=== PATIENT | female | born 1960 | race Caucasian/White ===

== ENCOUNTER 2024-07-21 16:57 | Emergency (ER) | payer OTHER, SELFPAY ==
[2024-07-21] VITALS (16 sets, daily range): BP systolic 128–206; BP diastolic 63–84; PULSE 78–89; RESP 15–31; TEMP 36.7; O2SAT 92–99; BMI 46.4
--- NOTE | 2024-07-21 17:18 | DI.RAD.S_ITS ---
PROCEDURE: XR CHEST 1V INDICATIONS: Chest Pain TECHNIQUE: One view of the chest was acquired. COMPARISON: None. FINDINGS: Lordotic patient position. Surgical changes and devices: None. Lungs and pleura: Lungs are clear. No pleural effusions or pneumothorax. Mediastinum: Mediastinal contours appear normal. Heart size is normal. Bones and chest wall: No suspicious bony lesions. Overlying soft tissues appear unremarkable. IMPRESSION: No acute cardiopulmonary abnormality is seen. Dictated by: Mago Alcala M.D. on 07/21/2024 at 17:41 Approved by: Mago Alcala M.D. on 07/21/2024 at 17:41
--- NOTE | 2024-07-21 17:22 | EKG_ITS ---
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
[2024-07-21 17:36] LABS: Add Manual Diff / Slide Review NO; Basophils Absolute Auto 100 /uL (0-100); Basophils Percent Auto 1.1 % (0-2); Eosinophils Absolute Auto 100 /uL (0-450); Eosinophils Percent Auto 2.1 % (2-4); Hematocrit 40.8 % (36-46); Hemoglobin 13.8 g/dL (12.0-16.0); Lymphocytes Absolute Auto 1500 /uL (1100-4500); Lymphocytes Percent Auto 29.5 % (25-40); Mean Corpuscular HGB Conc 33.9 % (30-36); Mean Corpuscular Hemoglobin 28.9 PG (26-34); Mean Corpuscular Volume 85.3 fL (80-100); Monocytes Absolute Auto 400 /uL (0-900); Monocytes Percent Auto 8.1 % (3-14); Neutrophils Absolute Auto 3100 /uL (1500-7000); Neutrophils Percent Auto 59.2 % (50-75); Platelet Count 204 X10^3/uL (150-400); Red Blood Cell Count 4.78 X10^6/uL (4.0-5.2); Red Cell Distribution Width 13.9 % (11.6-14.8); White Blood Cell Count 5.2 X10^3/uL (4.5-11.0)
[2024-07-21 17:40] LABS: Prothrombin Time 11.3 SECONDS (9.4-12.5)
[2024-07-21 17:42] LABS: PTT Partial Thromboplastin Tim 34 SECONDS (25.1-36.5)
[2024-07-21 17:45] LABS: Alanine Aminotransferase 76 IU/L (<35); Albumin 3.8 g/dL (3.5-5.0); Albumin Globulin Ratio 1.4 (1.0-2.8); Alkaline Phosphatase 87 U/L (38-126); Aspartate Aminotransferase 108 IU/L (14-36); BUN Creatinine Ratio 19.7 (6-22); Bilirubin Total 0.5 mg/dL (0.2-1.3); Blood Urea Nitrogen 13 mg/dL (7-17); Calcium 8.8 mg/dL (8.4-10.2); Carbon Dioxide 27 mmol/L (22-32); Chloride 103 mmol/L (98-107); Creatine Kinase 53 U/L (30-135); Estimated Glomerular Filt Rate > 60 mL/min (>60); Globulin 2.8 g/dL (1.7-4.1); Glucose 288 mg/dL (70-99); HEMOLYSIS 15 (0-50); Lactate (Lactic Acid) 2.9 mmol/L (0.7-2.1); Lipase 117 U/L (23-300); Magnesium 1.9 mg/dL (1.6-2.3); Potassium 4.4 mmol/L (3.4-5.1); Sodium 137 mmol/L (137-145); Total Protein 6.6 g/dL (6.3-8.2)
[2024-07-21 17:56] LABS: NT-proBNP (BNP-Adult 18+) 69 pg/mL (<125); Troponin I < 0.012 ng/mL (0.01-0.034)
--- NOTE | 2024-07-21 18:34 | ED_ITS ---
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 Santana. The surgery went well. She has had one-week or so of intermittent left anterior chest discomfort. The episodes are getting more frequent. They seemed to be happening at rest, not necessarily with any activity. Nonradiating. No associated nausea or vomiting, no associated diaphoresis. She has difficulty swallowing larger pills, has continued to take her blood pressure medications, and not taking her metformin. Related Data Allergies Allergy/AdvReac Type Severity Reaction Status Date / Time adhesive tape Allergy Verified 07/21/24 17:13 cephalexin [From Keflex] Allergy Verified 07/21/24 17:13 Patient History Social History Smoking Status: Never smoker Smoking Status: Never smoker Exam Narrative Exam Narrative: GENERAL: Well-developed patient, in mild distress. HEAD: Atraumatic. Normocephalic. EYES: Pupils equal round and reactive. Extraocular motions intact. No scleral icterus. No injection or drainage. ENT: Nose without bleeding, purulent drainage. Throat without erythema, tonsillar hypertrophy or exudate. Airway patent. NECK: Trachea midline. Non tender CARDIOVASCULAR: Regular rate and rhythm, soft 1-2/6 systolic murmur best heard LUSB, gallops, or rubs. RESPIRATORY: Clear to auscultation. Breath sounds equal bilaterally. No wheezes, rales, or rhonchi. GASTROINTESTINAL: Abdomen soft, non-tender, nondistended. EXTREMITIES: No edema or joint tenderness. BACK: Nontender without deformity or crepitance. No flank tenderness. NEURO: AOx3. Motor functions grossly nonfocal SKIN: No rash or erythema of visible areas Initial Vital Signs Initial Vital Signs: Vital Signs Temperature 98.1 F 07/21/24 17:13 Pulse Rate 81 07/21/24 17:13 Respiratory Rate 18 07/21/24 17:13 Blood Pressure 128/67 07/21/24 17:13 Pulse Oximetry 96 07/21/24 17:13 Oxygen Delivery Method Room Air 05/11/25 17:13 Course Orders Ordered: ED Orders 07/21/24 17:18 XR chest 1V Stat EKG-12 Lead Stat RT Consult Eval and Treat NOW 07/21/24 17:20 Complete Blood Count AUTO DIFF Stat Comprehensive Metabolic Panel Stat Lactate (Lactic Acid) Stat Lipase Stat Magnesium Stat NT-proBNP (BNP-Adult 18+) Stat PTT Partial Thromboplastin Peter Stat Prothrombin Time INR Stat Troponin & CK Cardiac Panel Stat 07/21/24 21:40 Troponin I Stat Discontinued Medications Aspirin (Aspirin 81 Mg Chew Tab) 324 mg PO NOW ONE Stop: 07/21/24 17:19 Last Admin: 07/21/24 19:05 Dose: Not Given Documented By: CANDELARIA Insulin Human Regular (Insulin Regular 100 Unit/Ml 3 Ml Vial) 5 unit SUBCUT NOW ONE Stop: 07/21/24 19:33 Last Admin: 07/21/24 19:42 Dose: 5 unit Documented By: BHUPINDER Co-signed By: SHARON Vital Signs Vital signs: Vital Signs - 8 hr 07/21/24 17:13 07/21/24 17:56 07/21/24 17:58 Temperature 98.1 F Pulse Rate 81 84 Respiratory Rate 18 Blood Pressure 128/67 176/69 H Pulse Oximetry 96 99 Oxygen Delivery Method Room Air 07/21/24 17:58 07/21/24 18:00 07/21/24 18:01 Temperature Pulse Rate 81 82 89 Respiratory Rate 15 16 21 Blood Pressure Pulse Oximetry 98 97 95 Oxygen Delivery Method 07/21/24 18:01 07/21/24 18:30 07/21/24 18:31 Temperature Pulse Rate 83 Respiratory Rate 26 H Blood Pressure 147/63 H 206/84 H Pulse Oximetry 98 Oxygen Delivery Method 07/21/24 18:31 07/21/24 19:00 07/21/24 19:01 Temperature Pulse Rate 82 85 Respiratory Rate 27 H 21 Blood Pressure 179/67 H Pulse Oximetry 98 97 Oxygen Delivery Method 07/21/24 19:01 07/21/24 19:30 07/21/24 20:00 Temperature Pulse Rate 83 82 Respiratory Rate 31 H 24 Blood Pressure 170/79 H 169/77 H Pulse Oximetry 98 92 Oxygen Delivery Method Room Air 07/21/24 20:00 07/21/24 20:30 07/21/24 20:30 Temperature Pulse Rate 82 87 Respiratory Rate 21 22 Blood Pressure 144/66 H Pulse Oximetry 93 94 Oxygen Delivery Method 07/21/24 21:00 07/21/24 21:30 07/21/24 21:30 Temperature Pulse Rate 87 Respiratory Rate 25 H Blood Pressure 145/70 H 145/67 H Pulse Oximetry 93 Oxygen Delivery Method 07/21/24 22:00 07/21/24 22:00 07/21/24 22:30 Temperature Pulse Rate 78 80 Respiratory Rate 18 26 H Blood Pressure 132/75 Pulse Oximetry 92 92 Oxygen Delivery Method 07/21/24 22:30 Temperature Pulse Rate Respiratory Rate Blood Pressure 135/66 Pulse Oximetry Oxygen Delivery Method MDM - Chest Pain Lab Data Attestation: I reviewed the patient's lab results. Lab results narrative: White blood cell count 5200, hemoglobin 13.8, platelets adequate. Glucose 288. Serum CO2 and anion gap normal. Sodium 137, potassium 4.4. BUN 13 with creatinine 0.66 normal renal function. AST greater than ALT mild elevation, normal total bilirubin and alkaline phosphatase. Lipase 117 normal. Troponin negative/unmeasurable. CPK normal. 07/21/24 17:20 07/21/24 17:20 Labs: Lab Results 07/21/24 07/21/24 07/21/24 Range/Units 17:20 19:24 21:40 WBC 5.2 (4.5-11.0) X10^3/uL RBC 4.78 (4.0-5.2) X10^6/uL Hgb 13.8 (12.0-16.0) g/dL Hct 40.8 (36-46) % MCV 85.3 (80-100) fL MCH 28.9 (26-34) PG MCHC 33.9 (30-36) % RDW 13.9 (11.6-14.8) % Plt Count 204 (150-400) X10^3/uL Neut % (Auto) 59.2 (50-75) % Lymph % (Auto) 29.5 (25-40) % [place] % (Auto) 8.1 (3-14) % Eos % (Auto) 2.1 (2-4) % Baso % (Auto) 1.1 (0-2) % Neut # (Auto) 3100 (9801-7435) /uL Lymph # (Auto) 1500 (9927-4308) /uL [place] # (Auto) 400 (0-900) /uL Eos # (Auto) 100 (0-450) /uL Baso # (Auto) 100 (0-100) /uL PT 11.3 (9.4-12.5) SECONDS INR 1.0 (0.9-1.3) APTT 34 (25.1-36.5) SECONDS Sodium 137 (137-145) mmol/L Potassium 4.4 (3.4-5.1) mmol/L Chloride 103 (98-107) mmol/L Carbon Dioxide 27 (22-32) mmol/L BUN 13 (7-17) mg/dL Creatinine 0.66 (0.52-1.04) mg/dL Estimated GFR > 60 (>60) mL/min BUN/Creatinine Ratio 19.7 (6-22) Glucose 288 H (70-99) mg/dL Lactate 2.9 H 1.9 (0.7-2.1) mmol/L Calcium 8.8 (8.4-10.2) mg/dL Magnesium 1.9 (1.6-2.3) mg/dL Total Bilirubin 0.5 (0.2-1.3) mg/dL AST 108 H (14-36) IU/L ALT 76 H (<35) IU/L Alkaline Phosphatase 87 (38-126) U/L Total Creatine Kinase 53 (30-135) U/L Troponin I < 0.012 0.014 (0.01-0.034) ng/mL NT-Pro-B Natriuret Pep 69 (<125) pg/mL Total Protein 6.6 (6.3-8.2) g/dL Albumin 3.8 (3.5-5.0) g/dL Globulin 2.8 (1.7-4.1) g/dL Albumin/Globulin Ratio 1.4 (1.0-2.8) Lipase 117 (23-300) U/L Point of Care Testing Glucose POC 245 ECG Data Attestation: I personally reviewed and interpreted this ECG as follows: Interpretation: normal sinus rhythm with rate of 80, no obvious ST segment elevation or depression changes. RI 144, QRS 78, QTC 447. MDM Narrative Medical decision making narrative: 64-year-old female with no known coronary artery disease, had preoperative cardiac evaluation March 2024 prior to hand wrist bone grafting surgical procedure, was tolerated well, history of murmur, echocardiogram recalled [facility] Miguel at time of stress testing before her hand surgery. Now with intermittent chest pain at rest in recent days, not currently present. EKG without obvious ischemic change. Initial troponin negative/unmeasurable, subsequent troponin 0.014 very low as well. Lab data: White blood cell count 5200, hemoglobin 13.8, platelets adequate. Glucose 288. Serum CO2 and anion gap normal. Sodium 137, potassium 4.4. BUN 13 with creatinine 0.66 normal renal function. AST greater than ALT mild elevation, normal total bilirubin and alkaline phosphatase. Lipase 117 normal. Troponin negative/unmeasurable. CPK normal. Elevated blood sugar, subcutaneous insulin 5 units given, blood sugar subsequently improved. Patient would like to go home, does not want any further testing at this time. Advised to continue her regular medications. She has concerns that her insurance no longer allows her to see [facility]ologists that she was seeing beforehand. She would like to see a different cardiologists in the [place] area that might be closer. Contact information for Dr. Duckworth on-call cardiology provided. Advised to call her office tomorrow for close follow up appointment. Advised to follow up with the regular provider to assist further with diabetic management, hypertension management, and other chronic medical issues. Advised to return to this/nearest emergency department for any change worsening symptoms or any concerns prior. Discharge Plan Departure Patient Disposition: Home Clinical Impression: Chest pain Instructions: DI for Chest Pain Activity Restrictions/Additional Instructions: Chest discomfort intermittent. No known coronary artery disease. Reported preoperative assessment with Cardiology evaluation [facility] in early 2024 prior to hand/wrist surgical procedure, which was reportedly reassuring. We attempted to get records from [facility] but none received. Tonight your EKG and serial blood tests were not suggestive of heart attack. You felt better and wanted to go home, did not want further testing evaluation for now. Follow up with local cardiology, contact information given for the office of Dr. Duckworth, as you felt that your insurance was no longer allowing you to see [facility]. Contact office of Dr. Duckworth tomorrow for close follow up. Also advised to follow up with your regular provider for further diabetes management, and other management of chronic conditions. Return earlier to this/nearest emergency department for any change worsening symptoms or any concerns prior. Referrals: Fior Duckworth DO [Physician] - Miscellaneous,Doctor, MD [Primary Care Provider] - Stand Alone Forms: Patient Portal/API/Survey
--- NOTE | 2024-07-21 18:45 | PC.NURSE ---
Pt arrived to ED because she has been experiencing sob & cp, sob while laying flat and also has concerns about BG. Pt has been experiencing several socioeconomic barriers to receiving necessary care and medications. 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 Pt is a&ox4.
[2024-07-21 19:06] LABS: Reflexed Lactate in 2 Hours Y
[2024-07-21 19:38] LABS: Lactate 2HR (Lactic Acid Rflx) 1.9 mmol/L (0.7-2.1)
[2024-07-21] MEDS: INSULIN REGULAR 100 UNIT/ML 3 ML VIAL SUBCUT (19:42)
[2024-07-21 22:17] LABS: Troponin I 0.014 ng/mL (0.01-0.034)
== END 2024-07-21 22:52 | disposition home or self-care (01) ==
PROVIDERS: Emergency Medicine; Emergency Provider Emergency Medicine
DX: R07.9 Chest pain, unspecified (principal); E11.65 Type 2 diabetes mellitus with hyperglycemia; Z98.890 Other specified postprocedural states
CPT/HCPCS: 36415; 71045; 80053; 82550; 82962; 83605; 83690; 83735; 83880; 84484; 85025; 85610; 85730; 93005; 93010; 96372; 99283; 99284